=== PATIENT | male | born 1975 ===

== ENCOUNTER 2018-01-06 16:27 | Emergency (ER) | payer BC ==
[2018-01-06 16:58] VITALS: BP 129/79
--- NOTE | 2018-01-06 17:30 | UC ---
UC General HPI - HPI Summary HPI Summary: pt c/o sore throat since yesterday - History of Current Complaint Chief Complaint: UCGeneralIllness Stated Complaint: SORE THROAT Time Seen by Provider: 01/06/18 17:25 Hx Obtained From: Patient Onset/Duration: Gradual Onset Timing: Constant Pain Intensity: 4 - Allergy/Home Medications Allergies/Adverse Reactions: Allergies Allergy/AdvReac Type Severity Reaction Status Date / Time No Known Allergies Allergy Verified 01/06/18 16:58 Home Medications: Home Medications NK [No Home Medications Reported] 01/06/18 [History Confirmed 01/06/18] PMH/Surg Hx/FS Hx/Imm Hx - Additional Past Medical History Additional PMH: inflammed vein R lower lip - Surgical History Surgical History: None - Family History Known Family History: Positive: Other - [place] - Social History Occupation: Employed Full-time Lives: With Family Alcohol Use: Occasionally Substance Use Type: None Smoking Status (MU): Never Smoked Tobacco - Immunization History Vaccination Up to Date: Yes Review of Systems Constitutional: Negative Skin: Negative Eyes: Negative ENT: Sore Throat Respiratory: Negative Cardiovascular: Negative Gastrointestinal: Negative Genitourinary: Negative Motor: Negative Neurovascular: Negative Musculoskeletal: Negative Neurological: Negative Psychological: Negative Is Patient Immunocompromised?: No All Other Systems Reviewed And Are Negative: Yes Physical Exam Triage Information Reviewed: Yes Appearance: Well-Appearing Vital Signs: Initial Vital Signs Temp 98.1 F 01/06/18 16:54 Pulse 69 01/06/18 16:54 Resp 14 01/06/18 16:54 BP 129/79 01/06/18 16:54 Pulse Ox 97 01/06/18 16:54 Eyes: Positive: Conjunctiva Clear ENT: Positive: Pharyngeal erythema, TMs normal, Uvula midline, Other - superficial veins(2) R lower lip.. Negative: Nasal congestion, Nasal drainage, Tonsillar swelling, Tonsillar exudate, Trismus, Muffled voice, Hoarse voice Neck: Positive: Supple, Tenderness @ - peritonsilar nodes with mild swelling. Respiratory: Positive: Lungs clear, Normal breath sounds Cardiovascular: Positive: RRR, No Murmur Abdomen Description: Positive: Nontender, No Organomegaly, Soft Bowel Sounds: Positive: Present Musculoskeletal: Positive: ROM Intact Neurological: Positive: Alert Psychological: Positive: Age Appropriate Behavior Skin Exam: Normal Diagnostics - Laboratory Diagnostic Studies Completed/Ordered: rapid strep=neg Course/Dx - Differential Dx - Multi-Symptom Provider Diagnoses: sore throat Discharge - Sign-Out/Discharge Documenting (check all that apply): Discharge/Admit/Transfer - Discharge Plan Condition: Stable Disposition: HOME Patient Education Materials: Pharyngitis (ED) Referrals: SIDRA Le [Medical Doctor] - 7 Days - Billing Disposition and Condition Condition: STABLE Disposition: HOME
== END 2018-01-06 17:36 | disposition home or self-care (01) ==
LOC: UCCORT 16:27
DX: J02.9 Acute pharyngitis, unspecified (principal)
CPT/HCPCS: 87651; 99201; G0463